=== PATIENT | male | born 1950 | race Caucasian/White ===

== ENCOUNTER 2017-07-22 09:45 | Day surgery (SDC) | payer MEDICAID, MEDICARE ==
[~2017-07-22 09:45] MED LIST: AMLO5TAB16 PO; HYDR25TA4 PO; LISI40TA4 PO; METO100T14 PO; VIG0.5OS OP
[2017-07-22] MEDS ORDERED: ASPI-1264 PO (10:51)
== END 2017-07-22 11:46 | disposition home or self-care (01) ==
LOC: WOUND CARE 09:45
PROVIDERS: ATTEND Surgery
DX: L89.512 Pressure ulcer of right ankle, stage 2 (principal); L97.221 Non-pressure chronic ulcer of left calf limited to breakdown of skin; L97.511 Non-pressure chronic ulcer of other part of right foot limited to breakdown of skin; I10 Essential (primary) hypertension
CPT/HCPCS: 97597; A4414

== ENCOUNTER 2017-07-29 10:30 | Outpatient (CLI) | payer MEDICARE ==
[~2017-07-29 10:30] MED LIST changes: -AMLO5TAB16 PO; +ASPI-1264 PO; -METO100T14 PO
== END 2017-07-29 11:26 | disposition home or self-care (01) ==
LOC: EDSTATUS 10:30 → WOUND CARE 10:30
PROVIDERS: ATTEND Surgery
DX: L89.512 Pressure ulcer of right ankle, stage 2 (principal); L97.221 Non-pressure chronic ulcer of left calf limited to breakdown of skin; L97.511 Non-pressure chronic ulcer of other part of right foot limited to breakdown of skin; I10 Essential (primary) hypertension
CPT/HCPCS: 99215; A4414; A6212

== ENCOUNTER 2019-04-16 10:59 | Inpatient (IN) | payer MEDICARE, MEDICAID ==
[~2019-04-16] VITALS: Ht 175.3 cm; Wt 110.0 kg
--- NOTE | 2019-04-16 11:27 | NUR ---
PT SITTING UP IN BED, DENIES PAIN OR DISCOMFORT. AMY NAVARRETE AT BEDSIDE.
[2019-04-16] MEDS ORDERED: ROBCFL PO (11:44)
[2019-04-16 13:10] LABS: BASOPHILS # (AUTO) 0.1 X10'3 (0-0.2); BASOPHILS % (AUTO) 1.1 % (0-1); EOSINOPHILS % (AUTO) 0.5 % (0-6); HEMATOCRIT 38.5 % (42.0-52.0); HEMOGLOBIN 13.2 g/dl (14.0-17.9); LYMPHOCYTES # (AUTO) 0.5 X10'3 (1.1-4.8); LYMPHOCYTES % (AUTO) 7.9 % (21-51); MEAN CORPUSCULAR HEMOGLOBIN 31.6 PG (27.0-31.0); MEAN CORPUSCULAR HGB CONC 34.4 g/dL (33.0-36.5); MEAN CORPUSCULAR VOLUME 91.9 FL (78-98); MEAN PLATELET VOLUME 7.9 FL (7.4-10.4); MONOCYTES # (AUTO) 1.3 X10'3 (0-0.9); MONOCYTES % (AUTO) 19.1 % (2-12); NEUTROPHILS # (AUTO) 4.8 X10'3 (1.8-7.7); NEUTROPHILS % (AUTO) 71.4 % (42-75); PLATELET COUNT 172 X10'3 (140-440); RED BLOOD COUNT 4.19 X10'6 (4.70-6.10); RED CELL DISTRIBUTION WIDTH 14.5 % (11.5-14.5); WHITE BLOOD COUNT 6.7 X10'3 (4.5-11.0)
[2019-04-16 13:24] LABS: ALANINE AMINOTRANSFERASE 21 U/L (12-78); ALBUMIN 3.6 G/DL (3.4-5.0); ALBUMIN/GLOBULIN RATIO 0.9 (1.1-1.5); ALKALINE PHOSPHATASE 53 IU/L (46-116); ANION GAP 9 (8-16); ASPARTATE AMINO TRANSFERASE 21 U/L (10-37); BILIRUBIN,TOTAL 0.5 MG/DL (0.1-1.0); BLOOD UREA NITROGEN 16 MG/DL (7-18); BUN/CREATININE RATIO 15.5 (5.4-32.0); CALCIUM 8.3 MG/DL (8.5-10.1); CHLORIDE 99 MMOL/L (99-107); CREATININE 1.03 MG/DL (0.60-1.10); GLUCOSE 100 MG/DL (70-104); POTASSIUM 3.5 MMOL/L (3.5-5.1); SODIUM 136 MMOL/L (135-145); TOTAL CARBON DIOXIDE 27.8 MMOL/L (24-32); TOTAL PROTEIN 7.4 G/DL (6.4-8.2); eGFR 71 ML/MIN
[2019-04-16] MEDS ORDERED: magnesium Cl slow-release 64mg tablet PO PRN (14:15)
[2019-04-16] MEDS ORDERED: magnesium 2GM in 50ml NS 50 ML IV PRN (14:15)
[2019-04-16] MEDS ORDERED: potassium Cl 20 mEq SR tablet PO PRN (14:15)
[2019-04-16] MEDS ORDERED: potassium CL 10mEq/100ml bag 100 ML IV PRN ×2 (14:15)
[2019-04-16] MEDS ORDERED: ondansetron/PF 4mg/2ml inj IV PRN (14:15)
[2019-04-16] MEDS ORDERED: magnesium 4gm in 100ml NS 100 ML IV PRN (14:15)
[2019-04-16] MEDS ORDERED: acetaminophen 325mg tablet PO PRN (14:15)
[2019-04-16] MEDS ORDERED: ipratropium/albuterol 3ml nebule NEB PRN ×2 (14:15)
[2019-04-16] MEDS ORDERED: ASPI81TA30 PO (14:49)
[2019-04-16 15:00] VITALS: BP 181/97
--- NOTE | 2019-04-16 16:42 | NUR ---
PAGER ID: [phone] MESSAGE: DESMOND 5199-RE: GUSTAVO SALAZAR [id number]...WE NEED A CODE STATUS ON PT, THANK YOU
[2019-04-16] MEDS: normal saline 1000ml 1,000 ML IV SCH (17:17)
--- NOTE | 2019-04-16 17:51 | NUR ---
PAGER ID: [phone] MESSAGE: DESMOND 5199-RE: GUSTAVO SALAZAR [id number]...MEDS HAVE BEEN REVIEWED WITH PT, PLEASE CONTINUE OR DC THEM, THANK YOU
[2019-04-16 18:00] VITALS: BP 160/87
--- NOTE | 2019-04-16 18:35 | NUR ---
Problems reprioritized. Patient report given, questions answered & plan of care reviewed with DAVID GRIMM.
--- NOTE | 2019-04-16 19:00 | NUR ---
Patient in room ORTHO 4011. I have received report from Gemini HERNANDEZ and had the opportunity to ask questions and assume patient care.
[2019-04-16] MEDS: heparin, porcine 5000 units/ml vial SQ SCH (19:53)
[2019-04-16] MEDS: K and/or MAG REPLACEMENT MC SCH (20:00)
[2019-04-16 21:56] VITALS: BP 136/67
[2019-04-17 02:00] VITALS: BP_SYST 134; BP_SYST 139; BP_SYST 144; BP_DIAS 75; BP_DIAS 78; BP_DIAS 79
[2019-04-17 05:27] LABS: BASOPHILS % (AUTO) 0.9 % (0-1); EOSINOPHILS % (AUTO) 0.3 % (0-6); HEMATOCRIT 36.1 % (42.0-52.0); HEMOGLOBIN 12.6 g/dl (14.0-17.9); LYMPHOCYTES # (AUTO) 0.8 X10'3 (1.1-4.8); LYMPHOCYTES % (AUTO) 16.4 % (21-51); MEAN CORPUSCULAR HEMOGLOBIN 32.2 PG (27.0-31.0); MEAN CORPUSCULAR VOLUME 91.9 FL (78-98); MEAN PLATELET VOLUME 8.7 FL (7.4-10.4); MONOCYTES # (AUTO) 1.4 X10'3 (0-0.9); MONOCYTES % (AUTO) 27.7 % (2-12); NEUTROPHILS # (AUTO) 2.8 X10'3 (1.8-7.7); NEUTROPHILS % (AUTO) 54.7 % (42-75); PLATELET COUNT 152 X10'3 (140-440); RED BLOOD COUNT 3.93 X10'6 (4.70-6.10); RED CELL DISTRIBUTION WIDTH 14.3 % (11.5-14.5); WHITE BLOOD COUNT 5.1 X10'3 (4.5-11.0)
[2019-04-17 05:43] LABS: ALBUMIN 3.1 G/DL (3.4-5.0); ANION GAP 8 (8-16); BLOOD UREA NITROGEN 14 MG/DL (7-18); BUN/CREATININE RATIO 14.9 (5.4-32.0); CALCIUM 8.1 MG/DL (8.5-10.1); CHLORIDE 99 MMOL/L (99-107); CREATININE 0.94 MG/DL (0.60-1.10); GLUCOSE 87 MG/DL (70-104); MAGNESIUM 1.9 MG/DL (1.5-2.4); POTASSIUM 3.4 MMOL/L (3.5-5.1); SODIUM 136 MMOL/L (135-145); TOTAL CARBON DIOXIDE 29.4 MMOL/L (24-32); eGFR 79 ML/MIN
[2019-04-17 06:00] VITALS: BP 122/79
[2019-04-17] MEDS: K and/or MAG REPLACEMENT MC SCH ×2 (07:35→20:00)
[2019-04-17] MEDS: aspirin 81mg tablet.DR PO SCH (07:45)
[2019-04-17] MEDS: potassium Cl 20 mEq SR tablet PO PRN ×2 (07:46→19:59)
[2019-04-17] MEDS: heparin, porcine 5000 units/ml vial SQ SCH ×2 (07:46→20:02)
[2019-04-17] MEDS: lisinopril 20mg tablet PO SCH (07:46)
[2019-04-17 10:00] VITALS: BP 126/69
[2019-04-17] MEDS ORDERED: FLU VACC QS2019-20 36MOS UP/PF 60 MCG/0.5 ML SYRINGE IMVAC ONE (10:00)
[2019-04-17] MEDS ORDERED: pneumococcal 23-VAL P-sac vacc 25 mcg/0.5ml vial IMVAC ONE (10:00)
[2019-04-17 18:00] VITALS: BP 169/75
--- NOTE | 2019-04-17 18:08 | NUR ---
Problems reprioritized. Patient report given, questions answered & plan of care reviewed with LAZARA HERNANDEZ.
--- NOTE | 2019-04-17 18:35 | NUR ---
Problems reprioritized. Patient report given, questions answered & plan of care reviewed with LAZARA HERNANDEZ.
[2019-04-17 19:27] LABS: CLARITY,URINE CLEAR (Clear); COLOR,URINE YELLOW (Yellow); GLUCOSE, URINE NEGATIVE (Neg); KETONES,URINE NEGATIVE (Neg); LEUKOCYTE ESTERASE ,URINE NEGATIVE (Neg); NITRITES, URINE NEGATIVE (Neg); OCCULT BLOOD,URINE MODERATE (Neg); PH,URINE 5.5 (4.8-8.0); PROTEIN,URINE NEGATIVE (Neg); UA COLLECTION TYPE CLN CATCH MIDSTREAM; UROBILINOGEN,URINE 0.2 E.U/dL (0.2-1.0)
[2019-04-17 19:35] LABS: BACTERIA,URINE NONE SEEN /HPF (Neg); MUCUS STRANDS NONE SEEN /LPF (Neg); SQUAMOUS EPITHELIAL CELL,UR FEW /LPF (FEW); WBC,URINE 0-4 /HPF (0-4)
[2019-04-17 22:00] VITALS: BP 133/82
[2019-04-18 06:00] VITALS: BP 140/83
[2019-04-18 06:09] LABS: ALBUMIN 2.9 G/DL (3.4-5.0); ANION GAP 6 (8-16); BLOOD UREA NITROGEN 13 MG/DL (7-18); BUN/CREATININE RATIO 14.9 (5.4-32.0); CHLORIDE 102 MMOL/L (99-107); CREATININE 0.87 MG/DL (0.60-1.10); GLUCOSE 88 MG/DL (70-104); POTASSIUM 3.8 MMOL/L (3.5-5.1); SODIUM 134 MMOL/L (135-145); TOTAL CARBON DIOXIDE 26.2 MMOL/L (24-32); eGFR 87 ML/MIN
[2019-04-18 06:10] LABS: BASOPHILS % (AUTO) 0.9 % (0-1); EOSINOPHILS # (AUTO) 0.1 X10'3 (0-0.9); EOSINOPHILS % (AUTO) 1.5 % (0-6); HEMATOCRIT 36.7 % (42.0-52.0); HEMOGLOBIN 12.9 g/dl (14.0-17.9); LYMPHOCYTES # (AUTO) 1.3 X10'3 (1.1-4.8); LYMPHOCYTES % (AUTO) 29.3 % (21-51); MEAN CORPUSCULAR VOLUME 91.5 FL (78-98); MEAN PLATELET VOLUME 8.7 FL (7.4-10.4); MONOCYTES # (AUTO) 1.2 X10'3 (0-0.9); MONOCYTES % (AUTO) 26.9 % (2-12); NEUTROPHILS # (AUTO) 1.8 X10'3 (1.8-7.7); NEUTROPHILS % (AUTO) 41.4 % (42-75); PLATELET COUNT 139 X10'3 (140-440); RED BLOOD COUNT 4.01 X10'6 (4.70-6.10); RED CELL DISTRIBUTION WIDTH 14.6 % (11.5-14.5); WHITE BLOOD COUNT 4.3 X10'3 (4.5-11.0)
[2019-04-18] MEDS: K and/or MAG REPLACEMENT MC SCH (08:15)
[2019-04-18] MEDS: aspirin 81mg tablet.DR PO SCH (08:19)
[2019-04-18] MEDS: lisinopril 20mg tablet PO SCH (08:20)
[2019-04-18] MEDS: heparin, porcine 5000 units/ml vial SQ SCH (08:21)
[2019-04-18 10:00] VITALS: BP 112/71
[2019-04-18 10:43] LABS: TOTAL CELLS COUNTED 100
[2019-04-18 10:44] LABS: PLATELET ESTIMATE DECREASED; SMUDGE CELLS 1+
[2019-04-18] MEDS: normal saline 1000ml 1,000 ML IV SCH (14:12)
[2019-04-18] MEDS ORDERED: AMOX-419 PO (15:44)
[2019-04-18] MEDS ORDERED: ALBU8.5H8 IH (15:44)
--- NOTE | 2019-04-18 15:45 | NUR ---
DR. DIEHL TO SEE PATIENT, PATIENT UPSET. ASSURED PATIENT HE DID NOTHING WRONG TO BE DISCHARGED.
--- NOTE | 2019-04-20 09:39 | NUR ---
Case Management DC follow up: LM/VM asking pt to rtn call if questions/concerns, post DC status.
== END 2019-04-18 17:45 | disposition home or self-care (01) | DRG 203 ==
LOC: ER 10:59 → ED HOLD 14:12 → ORTHO 4S 15:33
PROVIDERS: ADMIT Internal Medicine; ATTEND Internal Medicine
PROC: 3E0234Z Introduction of Serum, Toxoid and Vaccine into Muscle, Percutaneous Approach (ICD-10-PCS; principal; 2019-04-18)
PROC: 3E02340 Introduction of Influenza Vaccine into Muscle, Percutaneous Approach (ICD-10-PCS; 2019-04-18)
DX: J40 Bronchitis, not specified as acute or chronic (principal); I10 Essential (primary) hypertension; R29.6 Repeated falls; M25.561 Pain in right knee; W18.39XA Other fall on same level, initial encounter; Y93.89 Activity, other specified; Y92.89 Other specified places as the place of occurrence of the external cause; Y99.8 Other external cause status; Z79.899 Other long term (current) drug therapy; Z23 Encounter for immunization; M21.962 Unspecified acquired deformity of left lower leg; M21.961 Unspecified acquired deformity of right lower leg
CPT/HCPCS: 36415; 71045; 73560; 80048; 80053; 81001; 83735; 85025; 87070; 87081; 94760; 97110; 97116; 97161; 97530; G0378; J1644; J7030; Q2037

== ENCOUNTER 2019-12-11 13:59 | Emergency (ER) | payer BC, MEDICAID ==
[~2019-12-11] VITALS: Ht 177.8 cm; Wt 106.8 kg
[~2019-12-11 13:59] MED LIST changes: +ALBU8HFA PO; +APIX5TAB3 PO; -ASPI-1264 PO; +ASPI81TA30 PO; +CLON0.1T2 PO; +LIDOcaine 1% W/epiNEPHrine 1:200,000 10ml vial ONE; -VIG0.5OS OP
[2019-12-11] MEDS ORDERED: bacitracin 15gm ointment TP ONE (14:40)
[2019-12-11] MEDS ORDERED: acetaminophen 325mg tablet PO ONE (14:45)
[2019-12-11 15:31] VITALS: BP 168/98
== END 2019-12-11 15:35 | disposition home or self-care (01) ==
LOC: ER 14:00
DX: S51.011A Laceration without foreign body of right elbow, initial encounter (principal); I10 Essential (primary) hypertension; Z98.890 Other specified postprocedural states; Z60.2 Problems related to living alone; Z79.01 Long term (current) use of anticoagulants; Z79.899 Other long term (current) drug therapy; W19.XXXA Unspecified fall, initial encounter; Y93.89 Activity, other specified; Y92.89 Other specified places as the place of occurrence of the external cause; Y99.8 Other external cause status
CPT/HCPCS: 12001; 99284

== ENCOUNTER 2020-11-08 19:04 | Emergency (ER) | payer BC, MEDICAID ==
[~2020-11-08] VITALS: Ht 177.8 cm; Wt 104.5 kg
[~2020-11-08 19:04] MED LIST changes: -LIDOcaine 1% W/epiNEPHrine 1:200,000 10ml vial ONE; +LISI40TA13 PO; -LISI40TA4 PO
[2020-11-08 20:34] LABS: BASOPHILS # (AUTO) 0.1 X10'3 (0-0.2); BASOPHILS % (AUTO) 1.2 % (0-1); EOSINOPHILS # (AUTO) 0.4 X10'3 (0-0.9); EOSINOPHILS % (AUTO) 5.5 % (0-6); HEMATOCRIT 39.8 % (42.0-52.0); HEMOGLOBIN 13.5 g/dl (14.0-17.9); LYMPHOCYTES % (AUTO) 30.5 % (21-51); MEAN CORPUSCULAR HEMOGLOBIN 31.9 PG (27.0-31.0); MEAN CORPUSCULAR HGB CONC 33.8 g/dL (33.0-36.5); MEAN CORPUSCULAR VOLUME 94.1 FL (78-98); MEAN PLATELET VOLUME 8.5 FL (7.4-10.4); MONOCYTES # (AUTO) 0.8 X10'3 (0-0.9); MONOCYTES % (AUTO) 12.9 % (2-12); NEUTROPHILS # (AUTO) 3.2 X10'3 (1.8-7.7); NEUTROPHILS % (AUTO) 49.9 % (42-75); PLATELET COUNT 188 X10'3 (140-440); RED BLOOD COUNT 4.23 X10'6 (4.70-6.10); RED CELL DISTRIBUTION WIDTH 14.3 % (11.5-14.5); WHITE BLOOD COUNT 6.4 X10'3 (4.5-11.0)
[2020-11-08 20:36] LABS: ALANINE AMINOTRANSFERASE 14 U/L (12-78); ALBUMIN 3.5 G/DL (3.4-5.0); ALBUMIN/GLOBULIN RATIO 0.9 (1.1-1.5); ALKALINE PHOSPHATASE 62 IU/L (46-116); ANION GAP 5 (8-16); ASPARTATE AMINO TRANSFERASE 14 U/L (10-37); BILIRUBIN,TOTAL 0.3 MG/DL (0.1-1.0); BLOOD UREA NITROGEN 18 MG/DL (7-18); BUN/CREATININE RATIO 16.8 (5.4-32.0); CALCIUM 8.3 MG/DL (8.5-10.1); CHLORIDE 108 MMOL/L (99-107); CREATININE 1.07 MG/DL (0.60-1.10); GLUCOSE 108 MG/DL (70-104); POTASSIUM 4.1 MMOL/L (3.5-5.1); SODIUM 142 MMOL/L (135-145); TOTAL PROTEIN 7.3 G/DL (6.4-8.2); eGFR 68 ML/MIN
[2020-11-09 00:30] VITALS: BP 160/92
== END 2020-11-09 01:12 | disposition home or self-care (01) ==
LOC: ER 19:06
DX: R07.89 Other chest pain (principal); I10 Essential (primary) hypertension; Z98.890 Other specified postprocedural states; Z60.2 Problems related to living alone; Z59.0 Homelessness; Z79.82 Long term (current) use of aspirin; Z79.899 Other long term (current) drug therapy
CPT/HCPCS: 36415; 71045; 80053; 83880; 84484; 85025; 93005; 99285

== ENCOUNTER 2021-01-02 10:29 | Emergency (ER) | payer BC, MEDICAID ==
[~2021-01-02] VITALS: Ht 175.3 cm; Wt 109.4 kg
[2021-01-02 12:49] VITALS: BP 148/82
== END 2021-01-02 12:51 | disposition home or self-care (01) ==
LOC: ER 10:30
DX: S00.03XA Contusion of scalp, initial encounter (principal); I10 Essential (primary) hypertension; Z59.00 Homelessness unspecified; Z98.890 Other specified postprocedural states; Z79.82 Long term (current) use of aspirin; W01.198A Fall on same level from slipping, tripping and stumbling with subsequent striking against other object, initial encounter; Y93.89 Activity, other specified; Y92.89 Other specified places as the place of occurrence of the external cause; Y99.9 Unspecified external cause status
CPT/HCPCS: 70450; 99284

== ENCOUNTER 2021-02-14 02:55 | Emergency (ER) | payer BC, MEDICAID ==
[~2021-02-14] VITALS: Ht 175.3 cm; Wt 109.1 kg
[2021-02-14 06:24] VITALS: BP 131/78
== END 2021-02-14 06:14 | disposition home or self-care (01) ==
LOC: ER 02:56
DX: R11.2 Nausea with vomiting, unspecified (principal); R19.7 Diarrhea, unspecified; R11.10 Vomiting, unspecified; I10 Essential (primary) hypertension; Z98.890 Other specified postprocedural states; Z60.2 Problems related to living alone; Z59.00 Homelessness unspecified; Z79.82 Long term (current) use of aspirin; Z79.899 Other long term (current) drug therapy
CPT/HCPCS: 99283

== ENCOUNTER 2021-04-01 12:45 | Emergency (ER) | payer BC, MEDICAID ==
[~2021-04-01] VITALS: Ht 177.8 cm; Wt 109.0 kg
[~2021-04-01 12:45] MED LIST changes: -ALBU8HFA PO; +AMLO5TAB16 PO; -APIX5TAB3 PO; -ASPI81TA30 PO; +CARV-49 PO; -CLON0.1T2 PO; +FLO0.4C PO; -HYDR25TA4 PO; +LEVO500T90 PO; +LISI20TA28 PO; -LISI40TA13 PO
[2021-04-01 13:01] VITALS: BP 135/74
== END 2021-04-01 14:30 | disposition home or self-care (01) ==
LOC: ER 12:46
DX: S50.312A Abrasion of left elbow, initial encounter (principal); M25.512 Pain in left shoulder; I10 Essential (primary) hypertension; Z98.890 Other specified postprocedural states; Z60.2 Problems related to living alone; Z59.00 Homelessness unspecified; Z79.2 Long term (current) use of antibiotics; Z79.899 Other long term (current) drug therapy; W19.XXXA Unspecified fall, initial encounter; Y93.89 Activity, other specified; Y92.89 Other specified places as the place of occurrence of the external cause; Y99.8 Other external cause status
CPT/HCPCS: 99283

== ENCOUNTER 2021-05-09 14:16 | Inpatient (IN) | payer BC, MEDICAID ==
[~2021-05-09] VITALS: Ht 175.3 cm; Wt 90.9 kg
[~2021-05-09 14:16] MED LIST changes: -LEVO500T90 PO
[2021-05-09] MEDS ORDERED: normal saline 1000ML IV soln IVB ONE (14:55)
[2021-05-09 14:59] LABS: BASOPHILS # (AUTO) 0.2 X10'3 (0-0.2); BASOPHILS % (AUTO) 1.2 % (0-1); EOSINOPHILS # (AUTO) 0.2 X10'3 (0-0.9); EOSINOPHILS % (AUTO) 1.5 % (0-6); HEMATOCRIT 36.4 % (42.0-52.0); HEMOGLOBIN 12.1 g/dl (14.0-17.9); LYMPHOCYTES % (AUTO) 7.7 % (21-51); MEAN CORPUSCULAR HEMOGLOBIN 30.4 PG (27.0-31.0); MEAN CORPUSCULAR HGB CONC 33.2 g/dL (33.0-36.5); MEAN CORPUSCULAR VOLUME 91.7 FL (78-98); MEAN PLATELET VOLUME 8.4 FL (7.4-10.4); MONOCYTES # (AUTO) 1.5 X10'3 (0-0.9); NEUTROPHILS # (AUTO) 10.5 X10'3 (1.8-7.7); NEUTROPHILS % (AUTO) 78.6 % (42-75); PLATELET COUNT 217 X10'3 (140-440); RED BLOOD COUNT 3.97 X10'6 (4.70-6.10); WHITE BLOOD COUNT 13.3 X10'3 (4.5-11.0)
[2021-05-09 15:02] LABS: ABG BASE EXCESS 1.3 mmol/L (-2.0-2.0); ABG HCO3 24.2 mmol/L (22.0-26.0); ABG OXYGEN SATURATION 95.3 % (94-97); ABG PCO2 (T) 35.6 mmHg (35.0-48.0); ABG PO2 (T) 78.9 mmHg (75.0-100.0); ALLEN'S TEST POSITIVE; FCOHb 0.5 % (0.0-3.9); FMetHb 0.3 % (0.0-1.5); FO2Hb 94.5 % (94-97); PATIENT TEMPERATURE 38.8; TOTAL HEMOGLOBIN 13.1 G/dl (14.0-18.0)
[2021-05-09 15:12] LABS: APTT 25 SECONDS (22-32)
[2021-05-09 15:16] LABS: URINE AMPHETAMINE SCREEN NEGATIVE (Neg); URINE BARBITUATE SCREEN NEGATIVE (Neg); URINE BENZODIAZEPINES SCREEN NEGATIVE (Neg); URINE CANNABINOID SCREEN NEGATIVE (Neg); URINE COCAINE SCREEN NEGATIVE (Neg); URINE METHADONE SCREEN NEGATIVE (Neg); URINE OPIATE SCREEN NEGATIVE (Neg); URINE PHENCYCLIDINE SCREEN NEGATIVE (Neg)
[2021-05-09 15:17] LABS: ALANINE AMINOTRANSFERASE 14 U/L (12-78); ALBUMIN 3.4 G/DL (3.4-5.0); ALBUMIN/GLOBULIN RATIO 0.7 (1.1-1.5); ALKALINE PHOSPHATASE 55 IU/L (46-116); ANION GAP 9 (8-16); ASPARTATE AMINO TRANSFERASE 15 U/L (10-37); BILIRUBIN,TOTAL 0.3 MG/DL (0.1-1.0); BLOOD UREA NITROGEN 21 MG/DL (7-18); BUN/CREATININE RATIO 21.2 (5.4-32.0); CALCIUM 8.7 MG/DL (8.5-10.1); CHLORIDE 102 MMOL/L (99-107); CREATININE 0.99 MG/DL (0.60-1.10); GLUCOSE 123 MG/DL (70-104); SODIUM 138 MMOL/L (135-145); TOTAL CARBON DIOXIDE 26.6 MMOL/L (24-32); TOTAL PROTEIN 8.2 G/DL (6.4-8.2); eGFR 74 ML/MIN
[2021-05-09 15:22] LABS: ETHANOL < 0.010 GM/DL (0.0-0.010)
[2021-05-09 15:35] LABS: LACTIC SEPSIS 1.3 MMOL/L (0.4-2.0)
[2021-05-09 16:18] LABS: CLARITY,URINE CLOUDY (Clear); COLOR,URINE YELLOW (Yellow); GLUCOSE, URINE NEGATIVE (Neg); KETONES,URINE NEGATIVE (Neg); LEUKOCYTE ESTERASE ,URINE NEGATIVE (Neg); NITRITES, URINE NEGATIVE (Neg); OCCULT BLOOD,URINE TRACE-INTACT (Neg); PROTEIN,URINE NEGATIVE (Neg); UROBILINOGEN,URINE 0.2 E.U/dL (0.2-1.0)
[2021-05-09 16:22] LABS: UA COLLECTION TYPE VOIDED
[2021-05-09] MEDS ORDERED: CefTRIAXone/D5W-Rocephin 1gm 50 ML IV ONE (16:25)
[2021-05-09 16:50] LABS: BACTERIA,URINE NONE SEEN /HPF (Neg); MUCUS STRANDS FEW /LPF (Neg); RBC,URINE 0-2 /HPF (0-2); SQUAMOUS EPITHELIAL CELL,UR NONE SEEN /LPF (FEW); WBC,URINE 0-4 /HPF (0-4)
[2021-05-09 16:51] LABS: AMORPHOUS PHOSPHATES 4+
[2021-05-09] MEDS ORDERED: acetaminophen 325mg tablet PO PRN (17:10)
[2021-05-09] MEDS ORDERED: magnesium 2GM in 50ml NS 50 ML IV PRN (17:10)
[2021-05-09] MEDS ORDERED: CHOL20002 PO (17:10)
[2021-05-09] MEDS ORDERED: potassium CL 10mEq/100ml bag 100 ML IV PRN (17:10)
[2021-05-09] MEDS ORDERED: ondansetron/PF 4mg/2ml inj IV PRN (17:10)
[2021-05-09] MEDS ORDERED: potassium Cl 20 mEq SR tablet PO PRN ×2 (17:10)
[2021-05-09] MEDS ORDERED: magnesium Cl slow-release 64mg tablet PO PRN (17:10)
[2021-05-09] MEDS ORDERED: magnesium 4gm in 100ml NS 100 ML IV PRN (17:10)
[2021-05-09] MEDS ORDERED: PERFLUTREN PROTEIN-A MICROSPHR (Optison) 0.22 MG/ML 3ML VIAL IV ONE (17:10)
[2021-05-09] MEDS ORDERED: LISI20TA28 PO ×2 (17:21→18:15)
[2021-05-09] MEDS ORDERED: FLO0.4C PO ×2 (17:21→18:15)
[2021-05-09] MEDS ORDERED: CARV6.253 PO ×2 (17:21→18:15)
[2021-05-09 18:08] LABS: MAGNESIUM 1.9 MG/DL (1.5-2.4); POTASSIUM 3.8 MMOL/L (3.5-5.1)
[2021-05-09] MEDS ORDERED: CefTRIAXone/D5W-Rocephin 1gm 50 ML IV SCH (18:10)
[2021-05-09] MEDS: lisinopril 20mg tablet PO SCH (19:30)
[2021-05-09] MEDS: carvedilol 6.25mg tablet PO SCH (19:30)
[2021-05-09] MEDS: normal saline 1000ml 1,000 ML IV SCH (19:45)
[2021-05-09] MEDS: K and/or MAG REPLACEMENT MC SCH (19:47)
[2021-05-09 21:30] VITALS: BP 133/64
[2021-05-09 22:00] VITALS: BP 154/86
--- NOTE | 2021-05-09 22:00 | NUR ---
PATIENT ADMITED HE WAS FOUND IN HIS ROLLING WALKER AT [facility]. HE DID LOC BUT ARRIVED TO THE FLOOR AOX3. HE MAKES HIS NEEDS KNOWN DENIES PAIN. HE HAS A LAC 20 G. HIS HAS MILD WHEEZING ON EXHALATION AND SOB ON EXERTION. HE HAS EKATERINA LOWER LEG EDEMA LEGS HAVE PITTING EDEMA + 1-2. FEET ARE DRY AND SWOLLEN WELL.
[2021-05-10] VITALS: BP 142/67
[2021-05-10 02:00] VITALS: BP 128/64
[2021-05-10 02:30] LABS: BASOPHILS # (AUTO) 0.1 X10'3 (0-0.2); BASOPHILS % (AUTO) 0.6 % (0-1); EOSINOPHILS # (AUTO) 0.1 X10'3 (0-0.9); EOSINOPHILS % (AUTO) 0.8 % (0-6); HEMATOCRIT 32.8 % (42.0-52.0); LYMPHOCYTES % (AUTO) 9.9 % (21-51); MEAN CORPUSCULAR HEMOGLOBIN 30.8 PG (27.0-31.0); MEAN CORPUSCULAR HGB CONC 33.4 g/dL (33.0-36.5); MONOCYTES # (AUTO) 1.2 X10'3 (0-0.9); MONOCYTES % (AUTO) 11.7 % (2-12); NEUTROPHILS # (AUTO) 8.1 X10'3 (1.8-7.7); PLATELET COUNT 172 X10'3 (140-440); RED BLOOD COUNT 3.56 X10'6 (4.70-6.10); WHITE BLOOD COUNT 10.5 X10'3 (4.5-11.0)
[2021-05-10 02:43] LABS: ALBUMIN 2.7 G/DL (3.4-5.0); ANION GAP 7 (8-16); BLOOD UREA NITROGEN 13 MG/DL (7-18); BUN/CREATININE RATIO 15.9 (5.4-32.0); CALCIUM 8.1 MG/DL (8.5-10.1); CHLORIDE 103 MMOL/L (99-107); CHOL/HDL RATIO 2.1 (0.00-4.99); CHOLESTEROL 141 MG/DL (0-200); CREATININE 0.82 MG/DL (0.60-1.10); GLUCOSE 102 MG/DL (70-104); HDL CHOLESTEROL 68 MG/DL (35-60); LDL CHOLESTEROL 68 MG/DL (50-100); MAGNESIUM 2.2 MG/DL (1.5-2.4); POTASSIUM 3.6 MMOL/L (3.5-5.1); SODIUM 137 MMOL/L (135-145); TOTAL CARBON DIOXIDE 26.6 MMOL/L (24-32); TRIGLYCERIDES 41 MG/DL (20-135); eGFR > 90 ML/MIN
[2021-05-10 06:00] VITALS: BP 130/74
[2021-05-10] MEDS: carvedilol 6.25mg tablet PO SCH (08:00)
[2021-05-10] MEDS ORDERED: tamsulosin 0.4mg capsule PO SCH (08:00)
[2021-05-10] MEDS ORDERED: cholecalciferol (vitamin D3) 1,000 unit (25mcg) tablet PO SCH (08:00)
[2021-05-10] MEDS ORDERED: CefTRIAXone/D5W-Rocephin 1gm 50 ML IV SCH (08:00)
[2021-05-10] MEDS: K and/or MAG REPLACEMENT MC SCH (08:00)
[2021-05-10] MEDS: lisinopril 20mg tablet PO SCH (08:02)
[2021-05-10] MEDS: normal saline 1000ml 1,000 ML IV SCH ×2 (08:21→09:05)
[2021-05-10 11:00] VITALS: BP 137/78
--- NOTE | 2021-05-10 13:24 | NUR ---
Student documentation: I have reviewed and agree with all interventions, assessments performed and documented by REGIS Horan Communication Arts Lecturer. Addendum: 05/10/21 at 1325 by Anali STACY Amended: Links added.
--- NOTE | 2021-05-10 15:25 | NUR ---
PAGER ID: [phone] MESSAGE: [id number] MARTIN FELL GETTING OUT OF SHOWER. DID NOT HIT HIS HEAD. V/S STABLE .SKIN TEAR TO KNEE. DENIES PAIN. JEREMY HANSON
--- NOTE | 2021-05-10 15:30 | NUR ---
Physician called back and spoke with baccarat manager Kathi and states okay for discharge.
--- NOTE | 2021-05-10 16:30 | NUR ---
PIV removed with catheter intact. Telemetry removed. Patient is stable for discharge. Discharge instructions given and patient verbalized understanding. All possessions gathered. Patient transferred via wheelchair to [facility] to be transferred to [facility].
== END 2021-05-10 16:24 | disposition home or self-care (01) | DRG 72 ==
LOC: ER 14:16 → ED HOLD 17:15 → PCU 3S 21:50
PROVIDERS: ADMIT Internal Medicine; ATTEND Internal Medicine
DX: G93.40 Encephalopathy, unspecified (principal); Z60.2 Problems related to living alone; Z20.822 Contact with and (suspected) exposure to COVID-19; N40.0 Benign prostatic hyperplasia without lower urinary tract symptoms; I10 Essential (primary) hypertension; Z79.899 Other long term (current) drug therapy; Z59.00 Homelessness unspecified
CPT/HCPCS: 36415; 36600; 70450; 71045; 80048; 80053; 80061; 80305; 80320; 81001; 82140; 82803; 83605; 83735; 83880; 84132; 84484; 85018; 85025; 85610; 85730; 87040; 87635; 93005; 93308; 96361; 96365; 97116; 97161; 97530; 99285; C9803; G0378; J0696; J7030

== ENCOUNTER 2021-05-24 17:21 | Inpatient (IN) | payer BC, MEDICAID ==
[~2021-05-24] VITALS: Ht 177.8 cm; Wt 118.2 kg
[~2021-05-24 17:21] MED LIST changes: -AMLO5TAB16 PO; -CARV-49 PO; +CARV6.253 PO; +CHOL20002 PO
[2021-05-24] MEDS ORDERED: dexamethasone sod phosphate 10mg/ml inj IV STA (17:48)
[2021-05-24] MEDS ORDERED: ipratropium/albuterol 3ml nebule NEB ONE (17:50)
[2021-05-24 18:04] LABS: BASOPHILS # (AUTO) 0.1 X10'3 (0-0.2); BASOPHILS % (AUTO) 0.5 % (0-1); EOSINOPHILS # (AUTO) 0.1 X10'3 (0-0.9); EOSINOPHILS % (AUTO) 0.4 % (0-6); HEMATOCRIT 40.4 % (42.0-52.0); HEMOGLOBIN 13.2 g/dl (14.0-17.9); LYMPHOCYTES # (AUTO) 0.9 X10'3 (1.1-4.8); LYMPHOCYTES % (AUTO) 5.7 % (21-51); MEAN CORPUSCULAR HEMOGLOBIN 30.2 PG (27.0-31.0); MEAN CORPUSCULAR HGB CONC 32.7 g/dL (33.0-36.5); MEAN CORPUSCULAR VOLUME 92.2 FL (78-98); MEAN PLATELET VOLUME 8.2 FL (7.4-10.4); MONOCYTES # (AUTO) 1.2 X10'3 (0-0.9); NEUTROPHILS # (AUTO) 13.3 X10'3 (1.8-7.7); NEUTROPHILS % (AUTO) 85.4 % (42-75); PLATELET COUNT 248 X10'3 (140-440); RED BLOOD COUNT 4.38 X10'6 (4.70-6.10); RED CELL DISTRIBUTION WIDTH 14.7 % (11.5-14.5); WHITE BLOOD COUNT 15.6 X10'3 (4.5-11.0)
[2021-05-24] MEDS ORDERED: acetaminophen 650mg rectal suppository RC ONE (18:20)
[2021-05-24 18:22] LABS: CLARITY,URINE CLEAR (Clear); COLOR,URINE YELLOW (Yellow); GLUCOSE, URINE NEGATIVE (Neg); KETONES,URINE NEGATIVE (Neg); LEUKOCYTE ESTERASE ,URINE NEGATIVE (Neg); NITRITES, URINE NEGATIVE (Neg); OCCULT BLOOD,URINE MODERATE (Neg); PROTEIN,URINE 30 mg/dl (Neg); UROBILINOGEN,URINE 0.2 E.U/dL (0.2-1.0)
[2021-05-24] MEDS ORDERED: CefTRIAXone 2gm/D5W 50ml BAG 50 ML IV ONE (18:25)
[2021-05-24] MEDS ORDERED: vancomycin/NS 1 GM ADD-VANTAGE 250 ML IV ONE (18:25)
[2021-05-24 18:32] LABS: ALANINE AMINOTRANSFERASE 18 U/L (12-78); ALBUMIN/GLOBULIN RATIO 0.9 (1.1-1.5); ALKALINE PHOSPHATASE 68 IU/L (46-116); ANION GAP 12 (8-16); ASPARTATE AMINO TRANSFERASE 17 U/L (10-37); BILIRUBIN,TOTAL 0.3 MG/DL (0.1-1.0); BLOOD UREA NITROGEN 23 MG/DL (7-18); BUN/CREATININE RATIO 21.5 (5.4-32.0); CALCIUM 9.2 MG/DL (8.5-10.1); CHLORIDE 103 MMOL/L (99-107); CREATININE 1.07 MG/DL (0.60-1.10); GLUCOSE 101 MG/DL (70-104); POTASSIUM 4.2 MMOL/L (3.5-5.1); SODIUM 140 MMOL/L (135-145); TOTAL CARBON DIOXIDE 24.6 MMOL/L (24-32); TOTAL PROTEIN 8.7 G/DL (6.4-8.2); eGFR 68 ML/MIN
[2021-05-24 18:35] LABS: UA COLLECTION TYPE STRAIGHT CATH
[2021-05-24 18:36] LABS: BACTERIA,URINE NONE SEEN /HPF (Neg); SQUAMOUS EPITHELIAL CELL,UR FEW /LPF (FEW); WBC,URINE NONE SEEN /HPF (0-4)
[2021-05-24] MEDS ORDERED: hydrALAZINE 20mg/ml inj. IV ONE ×2 (18:40→19:00)
[2021-05-24 18:48] LABS: ABG BASE EXCESS 3.2 mmol/L (-2.0-2.0); ABG HCO3 25.8 mmol/L (22.0-26.0); ABG OXYGEN SATURATION 92.6 % (94-97); ABG PO2 (T) 59.5 mmHg (75.0-100.0); ALLEN'S TEST POSITIVE; FCOHb 0.6 % (0.0-3.9); FMetHb 0.3 % (0.0-1.5); FO2Hb 91.8 % (94-97); PATIENT TEMPERATURE 37.7; TOTAL HEMOGLOBIN 13.5 G/dl (14.0-18.0)
--- NOTE | 2021-05-24 18:51 | NUR ---
SVN on hold pending Covid test results
--- NOTE | 2021-05-24 19:08 | NUR ---
lactic 2.7 fluids being held for pro bnp results then md will adress fluid
[2021-05-24 20:29] LABS: ETHANOL < 0.010 GM/DL (0.0-0.010)
[2021-05-24 22:04] LABS: APTT 25 SECONDS (22-32); D-DIMER 1.76 MG/L FEU (0-0.50)
[2021-05-24 22:04] LABS: URINE AMPHETAMINE SCREEN NEGATIVE (Neg); URINE BARBITUATE SCREEN NEGATIVE (Neg); URINE BENZODIAZEPINES SCREEN NEGATIVE (Neg); URINE CANNABINOID SCREEN NEGATIVE (Neg); URINE COCAINE SCREEN NEGATIVE (Neg); URINE METHADONE SCREEN NEGATIVE (Neg); URINE OPIATE SCREEN NEGATIVE (Neg); URINE PHENCYCLIDINE SCREEN NEGATIVE (Neg)
[2021-05-24] MEDS ORDERED: potassium CL 10mEq/100ml bag 100 ML IV PRN (22:40)
[2021-05-24] MEDS ORDERED: acetaminophen 325mg tablet PO PRN (22:40)
[2021-05-24] MEDS ORDERED: mag hydrox/Alum hydrox/simeth 30ml oral suspension PO PRN (22:40)
[2021-05-24] MEDS ORDERED: magnesium 4gm in 100ml NS 100 ML IV PRN (22:40)
[2021-05-24] MEDS ORDERED: magnesium 2GM in 50ml NS 50 ML IV PRN (22:40)
[2021-05-24] MEDS ORDERED: potassium Cl 20 mEq SR tablet PO PRN ×2 (22:40)
[2021-05-24] MEDS ORDERED: ondansetron/PF 4mg/2ml inj IV PRN (22:40)
[2021-05-24] MEDS ORDERED: magnesium Cl slow-release 64mg tablet PO PRN (22:40)
[2021-05-24] MEDS ORDERED: magnesium hydroxide 30ml (MOM) UD suspension PO PRN (22:40)
[2021-05-24] MEDS ORDERED: iohexol 350MG/ML 100ml bottle IV ONE (22:47)
--- NOTE | 2021-05-24 22:47 | NUR ---
TO CT VIA [facility]
--- NOTE | 2021-05-25 03:30 | NUR ---
Received pt to floor on stretcher awake and alert, pt oriented to room and staff, placed on security monitor, and start IV fluid.
[2021-05-25 03:41] VITALS: BP 169/91
[2021-05-25] MEDS: normal saline 1000ml 1,000 ML IV SCH ×3 (04:00→18:40)
[2021-05-25 06:00] VITALS: BP 134/83
[2021-05-25 07:16] LABS: BASOPHILS % (AUTO) 0.1 % (0-1); EOSINOPHILS % (AUTO) 0 % (0-6); HEMATOCRIT 33.7 % (42.0-52.0); HEMOGLOBIN 11.3 g/dl (14.0-17.9); LYMPHOCYTES # (AUTO) 0.4 X10'3 (1.1-4.8); LYMPHOCYTES % (AUTO) 2.5 % (21-51); MEAN CORPUSCULAR HEMOGLOBIN 30.5 PG (27.0-31.0); MEAN CORPUSCULAR HGB CONC 33.6 g/dL (33.0-36.5); MEAN PLATELET VOLUME 8.4 FL (7.4-10.4); MONOCYTES # (AUTO) 0.8 X10'3 (0-0.9); MONOCYTES % (AUTO) 4.8 % (2-12); NEUTROPHILS # (AUTO) 16.3 X10'3 (1.8-7.7); NEUTROPHILS % (AUTO) 92.6 % (42-75); PLATELET COUNT 194 X10'3 (140-440); RED CELL DISTRIBUTION WIDTH 14.7 % (11.5-14.5); WHITE BLOOD COUNT 17.6 X10'3 (4.5-11.0)
--- NOTE | 2021-05-25 07:30 | NUR ---
Patient in room PCU 3016. I have received report from Kaylyn and had the opportunity to ask questions and assume patient care.
[2021-05-25 07:55] LABS: ALANINE AMINOTRANSFERASE 14 U/L (12-78); ALBUMIN 2.7 G/DL (3.4-5.0); ALBUMIN/GLOBULIN RATIO 0.7 (1.1-1.5); ALKALINE PHOSPHATASE 44 IU/L (46-116); ANION GAP 11 (8-16); ASPARTATE AMINO TRANSFERASE 15 U/L (10-37); BILIRUBIN,TOTAL 0.4 MG/DL (0.1-1.0); BLOOD UREA NITROGEN 16 MG/DL (7-18); BUN/CREATININE RATIO 19.8 (5.4-32.0); CHLORIDE 107 MMOL/L (99-107); CREATININE 0.81 MG/DL (0.60-1.10); GLUCOSE 132 MG/DL (70-104); POTASSIUM 3.9 MMOL/L (3.5-5.1); SODIUM 143 MMOL/L (135-145); TOTAL PROTEIN 6.5 G/DL (6.4-8.2); eGFR > 90 ML/MIN
[2021-05-25] MEDS: K and/or MAG REPLACEMENT MC SCH ×2 (08:00→20:00)
[2021-05-25] MEDS: CefTRIAXone/D5W-Rocephin 1gm 50 ML IV SCH (08:11)
[2021-05-25] MEDS: docusate sod 100mg capsule PO SCH ×2 (08:12→20:10)
[2021-05-25] MEDS: carvedilol 6.25mg tablet PO SCH ×2 (08:12→20:07)
[2021-05-25] MEDS: cholecalciferol (vitamin D3) 1,000 unit (25mcg) tablet PO SCH (08:12)
[2021-05-25] MEDS: heparin, porcine 5000 units/ml vial SQ SCH ×2 (08:13→20:08)
[2021-05-25] MEDS: tamsulosin 0.4mg capsule PO SCH (08:13)
[2021-05-25] MEDS: lisinopril 20mg tablet PO SCH ×2 (08:13→20:05)
[2021-05-25 11:00] VITALS: BP 124/91
[2021-05-25 15:00] VITALS: BP 134/78
[2021-05-25 18:00] VITALS: BP 164/96
[2021-05-25 22:00] VITALS: BP 139/86
[2021-05-26 02:00] VITALS: BP 151/84
[2021-05-26 06:00] VITALS: BP 161/99
[2021-05-26 07:00] LABS: BASOPHILS # (AUTO) 0.1 X10'3 (0-0.2); BASOPHILS % (AUTO) 0.7 % (0-1); EOSINOPHILS # (AUTO) 0.2 X10'3 (0-0.9); EOSINOPHILS % (AUTO) 1.6 % (0-6); HEMATOCRIT 32.2 % (42.0-52.0); HEMOGLOBIN 10.8 g/dl (14.0-17.9); LYMPHOCYTES # (AUTO) 1.9 X10'3 (1.1-4.8); LYMPHOCYTES % (AUTO) 19.1 % (21-51); MEAN CORPUSCULAR HEMOGLOBIN 30.8 PG (27.0-31.0); MEAN CORPUSCULAR HGB CONC 33.6 g/dL (33.0-36.5); MEAN CORPUSCULAR VOLUME 91.5 FL (78-98); MEAN PLATELET VOLUME 8.7 FL (7.4-10.4); MONOCYTES # (AUTO) 1.1 X10'3 (0-0.9); MONOCYTES % (AUTO) 11.4 % (2-12); NEUTROPHILS # (AUTO) 6.5 X10'3 (1.8-7.7); NEUTROPHILS % (AUTO) 67.2 % (42-75); PLATELET COUNT 181 X10'3 (140-440); RED BLOOD COUNT 3.52 X10'6 (4.70-6.10); RED CELL DISTRIBUTION WIDTH 14.8 % (11.5-14.5); WHITE BLOOD COUNT 9.7 X10'3 (4.5-11.0)
[2021-05-26 07:38] LABS: GLUCOSE 87 MG/DL (70-104); SODIUM 144 MMOL/L (135-145)
[2021-05-26 07:39] LABS: ALANINE AMINOTRANSFERASE 15 U/L (12-78); ALBUMIN 2.8 G/DL (3.4-5.0); ALBUMIN/GLOBULIN RATIO 0.8 (1.1-1.5); ALKALINE PHOSPHATASE 42 IU/L (46-116); ANION GAP 11 (8-16); ASPARTATE AMINO TRANSFERASE 16 U/L (10-37); BILIRUBIN,TOTAL 0.2 MG/DL (0.1-1.0); BLOOD UREA NITROGEN 18 MG/DL (7-18); BUN/CREATININE RATIO 20.7 (5.4-32.0); CHLORIDE 106 MMOL/L (99-107); CREATININE 0.87 MG/DL (0.60-1.10); MAGNESIUM 2.1 MG/DL (1.5-2.4); POTASSIUM 3.9 MMOL/L (3.5-5.1); TOTAL CARBON DIOXIDE 27.3 MMOL/L (24-32); TOTAL PROTEIN 6.5 G/DL (6.4-8.2); eGFR 86 ML/MIN
[2021-05-26] MEDS: K and/or MAG REPLACEMENT MC SCH ×2 (08:00→20:00)
[2021-05-26] MEDS: CefTRIAXone/D5W-Rocephin 1gm 50 ML IV SCH (08:16)
[2021-05-26] MEDS: docusate sod 100mg capsule PO SCH ×2 (08:17→20:38)
[2021-05-26] MEDS: carvedilol 6.25mg tablet PO SCH ×2 (08:17→20:38)
[2021-05-26] MEDS: tamsulosin 0.4mg capsule PO SCH (08:17)
[2021-05-26] MEDS: cholecalciferol (vitamin D3) 1,000 unit (25mcg) tablet PO SCH (08:17)
[2021-05-26] MEDS: heparin, porcine 5000 units/ml vial SQ SCH ×2 (08:18→20:00)
[2021-05-26] MEDS: lisinopril 20mg tablet PO SCH ×2 (08:19→21:06)
[2021-05-26 11:00] VITALS: BP 137/83
[2021-05-26 15:00] VITALS: BP 90/63
[2021-05-26] MEDS: normal saline 1000ml 1,000 ML IV SCH (17:00)
--- NOTE | 2021-05-26 18:32 | NUR ---
Problems reprioritized. Patient report given, questions answered & plan of care reviewed with Kaylyn/RN.
--- NOTE | 2021-05-26 18:50 | NUR ---
Slow mag 128 mg was administered twice during shift 1336 and at 1844 for low mag. Report given to oncoming nurse.
[2021-05-26 22:00] VITALS: BP 156/89
[2021-05-27] MEDS: normal saline 1000ml 1,000 ML IV SCH ×2 (00:40→10:40)
[2021-05-27 02:00] VITALS: BP 159/95
[2021-05-27 06:00] VITALS: BP 168/91
[2021-05-27 06:24] LABS: BASOPHILS % (AUTO) 0.7 % (0-1); EOSINOPHILS # (AUTO) 0.4 X10'3 (0-0.9); EOSINOPHILS % (AUTO) 5.3 % (0-6); HEMATOCRIT 33.9 % (42.0-52.0); HEMOGLOBIN 11.5 g/dl (14.0-17.9); LYMPHOCYTES # (AUTO) 1.7 X10'3 (1.1-4.8); LYMPHOCYTES % (AUTO) 24.6 % (21-51); MEAN CORPUSCULAR HEMOGLOBIN 30.8 PG (27.0-31.0); MEAN CORPUSCULAR VOLUME 90.8 FL (78-98); MEAN PLATELET VOLUME 8.4 FL (7.4-10.4); MONOCYTES % (AUTO) 14.2 % (2-12); NEUTROPHILS # (AUTO) 3.7 X10'3 (1.8-7.7); NEUTROPHILS % (AUTO) 55.2 % (42-75); PLATELET COUNT 183 X10'3 (140-440); RED BLOOD COUNT 3.73 X10'6 (4.70-6.10); RED CELL DISTRIBUTION WIDTH 14.9 % (11.5-14.5); WHITE BLOOD COUNT 6.8 X10'3 (4.5-11.0)
[2021-05-27 07:27] LABS: ALANINE AMINOTRANSFERASE 16 U/L (12-78); ALBUMIN 2.9 G/DL (3.4-5.0); ALBUMIN/GLOBULIN RATIO 0.8 (1.1-1.5); ALKALINE PHOSPHATASE 45 IU/L (46-116); ANION GAP 8 (8-16); ASPARTATE AMINO TRANSFERASE 13 U/L (10-37); BILIRUBIN,TOTAL 0.3 MG/DL (0.1-1.0); BLOOD UREA NITROGEN 14 MG/DL (7-18); BUN/CREATININE RATIO 18.4 (5.4-32.0); CALCIUM 8.3 MG/DL (8.5-10.1); CHLORIDE 105 MMOL/L (99-107); CREATININE 0.76 MG/DL (0.60-1.10); GLUCOSE 84 MG/DL (70-104); MAGNESIUM 2.1 MG/DL (1.5-2.4); SODIUM 140 MMOL/L (135-145); TOTAL CARBON DIOXIDE 26.6 MMOL/L (24-32); TOTAL PROTEIN 6.7 G/DL (6.4-8.2); eGFR > 90 ML/MIN
[2021-05-27] MEDS: K and/or MAG REPLACEMENT MC SCH (08:00)
[2021-05-27] MEDS: lisinopril 20mg tablet PO SCH (08:19)
[2021-05-27] MEDS: carvedilol 6.25mg tablet PO SCH (08:19)
[2021-05-27] MEDS: cholecalciferol (vitamin D3) 1,000 unit (25mcg) tablet PO SCH (08:19)
[2021-05-27] MEDS: tamsulosin 0.4mg capsule PO SCH (08:19)
[2021-05-27] MEDS: docusate sod 100mg capsule PO SCH (08:20)
[2021-05-27] MEDS: heparin, porcine 5000 units/ml vial SQ SCH (08:21)
[2021-05-27] MEDS: CefTRIAXone/D5W-Rocephin 1gm 50 ML IV SCH (08:26)
[2021-05-27 11:00] VITALS: BP 172/103
--- NOTE | 2021-05-27 11:49 | NUR ---
Pt Óscar Gamble Rm 3016-B BP 172/103, HR 72. No PRN BP meds
[2021-05-27] MEDS ORDERED: CEPH-585 PO (14:01)
[2021-05-27 15:01] VITALS: BP 159/96
--- NOTE | 2021-05-27 15:45 | NUR ---
PRESSURE ULCER EDUCATION: DEFINITION: A pressure ulcer is an area of skin that breaks down when you stay in one position too long. The constant pressure against the skin reduces the blood flow to that area and the affected tissue dies. CAUSES: "Being bedridden or in a wheelchair "Fragile skin "Having a chronic condition, such as diabetes or vascular disease "Inability to move certain parts of your body without assistance "Older age "Incontinence of urine or stool SYMPTOMS: "A reddened area that DOES NOT turn white when pressed on - this can be the beginning of a pressure ulcer "A blister, deep sore or a crater - these can be advanced pressure ulcers FIRST AID: "Relieve the pressure on this area "Keep the area clean and dry "Call your primary doctor if you see any of the above symptoms "DO NOT massage the area "DO NOT use a donut shaped or ring shaped pillow- these actually interfere with the blood flow and cause complications PREVENTION: "Check for pressure ulcers everyday "Change position at least every two hours to relieve pressure "Use items that help relieve pressure- pillows, sheepskin, foam padding, and powders. "Keep skin clean and dry "Eat healthy well balanced meals "Exercise daily IF YOU SEE ANY OF THESE SYMPTOMS WHILE IN THE HOSPITAL - TELL YOUR NURSE IMMEDIATELY. IF YOU SEE ANY OF THESE SYMPTOMS WHILE AT HOME OR HAVE ANY QUESTIONS OR CONCERNS ABOUT PRESSURE ULCERS - CALL YOUR PRIMARY DOCTOR IMMEDIATELY. Addendum: 05/27/21 at 1545 by Kandi Santamaria RN Amended: Links added.
--- NOTE | 2021-05-27 17:46 | NUR ---
Discharged patient home, in stable condition, via taxi.
== END 2021-05-27 17:23 | disposition home or self-care (01) | DRG 871 ==
LOC: ER 17:22 → ED HOLD 22:40 → PCU 3S 05-25 03:25
PROVIDERS: ADMIT Internal Medicine; ATTEND Internal Medicine
PROC: B32T1ZZ Computerized Tomography (CT Scan) of Left Pulmonary Artery using Low Osmolar Contrast (ICD-10-PCS; principal; 2021-05-24)
PROC: B3201ZZ Computerized Tomography (CT Scan) of Thoracic Aorta using Low Osmolar Contrast (ICD-10-PCS; 2021-05-24)
PROC: B32S1ZZ Computerized Tomography (CT Scan) of Right Pulmonary Artery using Low Osmolar Contrast (ICD-10-PCS; 2021-05-24)
DX: A41.9 Sepsis, unspecified organism (principal); J96.00 Acute respiratory failure, unspecified whether with hypoxia or hypercapnia; N39.0 Urinary tract infection, site not specified; R06.03 Acute respiratory distress; Z20.822 Contact with and (suspected) exposure to COVID-19; D72.829 Elevated white blood cell count, unspecified; I10 Essential (primary) hypertension; Z60.2 Problems related to living alone; R00.0 Tachycardia, unspecified; I71.9 Aortic aneurysm of unspecified site, without rupture; Z59.00 Homelessness unspecified; Z79.899 Other long term (current) drug therapy; J40 Bronchitis, not specified as acute or chronic; J98.01 Acute bronchospasm
CPT/HCPCS: 36415; 36600; 71045; 71275; 80053; 80305; 80320; 81001; 82803; 83605; 83735; 83880; 84145; 84443; 85018; 85025; 85379; 85610; 85730; 87040; 87081; 87635; 93005; 94640; 94760; 96365; 96366; 96368; 96375; 97161; 97530; 97535; 99285; C9803; G0378; J0696; J1100; J1644; J3370; J7030; Q9967